=== PATIENT | female | born 1945 | race Caucasian/White ===

== ENCOUNTER 2021-10-13 00:10 | Emergency (ER) | payer MEDICARE, OTHER ==
[~2021-10-13] VITALS: Ht 149.9 cm; Wt 50.0 kg
[2021-10-13 02:16] LABS: BASOPHILS % (AUTO) 0.2 % (0.0-2.0); EOSINOPHILS % (AUTO) 0 % (1.0-6.0); HEMATOCRIT 39.1 % (36-46); HEMOGLOBIN 13.3 g/dL (12.0-16.0); LYMPHOCYTES # (AUTO) 0.6 K/uL (1.0-4.8); LYMPHOCYTES % (AUTO) 9.6 % (22.0-44.0); MEAN CORPUSCULAR HEMOGLOBIN 29.6 pg (26.0-34.0); MEAN CORPUSCULAR VOLUME 87 fL (80-100); MONOCYTES # (AUTO) 0.5 K/uL (0.1-1.0); MONOCYTES % (AUTO) 8.5 % (2.0-9.0); NEUTROPHILS % (AUTO) 81.7 % (40.0-70.0); PLATELET COUNT (AUTO) 180 K/uL (150-450); RED BLOOD CELL COUNT(AUTO) 4.49 MIL/uL (4.00-5.20); RED CELL DISTRIBUTION WIDTH 14.9 % (11.5-14.5)
[2021-10-13 02:25] LABS: ANION GAP 7 mmol/L (8-16); CALCIUM, TOTAL 9.4 mg/dL (8.8-10.5); CARBON DIOXIDE 32 mmol/L (22-29); CHLORIDE 104 mmol/L (98-107); CREATININE 0.77 mg/dL (0.60-1.30); GLUCOSE,RANDOM 131 mg/dL (70-110); POTASSIUM 3.4 mmol/L (3.5-5.1); SODIUM SERUM 143 mmol/L (136-145); UREA NITROGEN, BLOOD 26 mg/dL (7-18)
[2021-10-13 02:30] LABS: ALANINE AMINOTRANSFERASE 30 U/L (12-78); ALBUMIN 3.8 g/dL (3.4-5.0); ALKALINE PHOSPHATASE 73 U/L (46-116); ASPARTATE AMINOTRANSFERASE 36 U/L (15-37); BILIRUBIN,TOTAL 0.6 mg/dL (0.1-1.0)
[2021-10-13 02:35] LABS: GLOMERULAR FILTR. RATE CALC > 60 mL/min (>60)
[2021-10-13 04:08] LABS: COVID AG,FIA SOURCE NASAL SWAB
[2021-10-13 05:24] LABS: APPEARANCE,URINE CLEAR (CLEAR); BILIRUBIN,URINE NEGATIVE (NEGATIVE); GLUCOSE, URINE (UA) TRACE mg/dL (NEGATIVE); KETONES,URINE 40-60 mg/dL (NEGATIVE); LEUKOCYTE ESTERASE ,URINE NEGATIVE (NEGATIVE); NITRATE,URINE NEGATIVE (NEGATIVE); OCCULT BLOOD,URINE NEGATIVE (NEGATIVE); PROTEIN,URINE TRACE mg/dL (NEGATIVE); SPECIFIC GRAVITIY, URINE 1.024 (1.003-1.030); UROBILINOGEN,URINE <=1.0 mg/dL (<=1.0)
[2021-10-13 05:30] LABS: AMPHET/METH SCREEN,URINE NEGATIVE (NEGATIVE); BARBITURATE SCREEN, URINE NEGATIVE (NEGATIVE); BENZODIAZEPINES SCREEN,URINE NEGATIVE (NEGATIVE); CANNABINOID SCREEN,URINE NEGATIVE (NEGATIVE); COCAINE SCREEN,URINE NEGATIVE (NEGATIVE); METHADONE SCREEN, URINE NEGATIVE (NEGATIVE); OPIATE SCREEN,URINE NEGATIVE (NEGATIVE)
[2021-10-13 05:32] LABS: PHENCYCLIDINE SCREEN,URINE NEGATIVE (NEGATIVE)
[2021-10-13] MEDS: POTASSIUM CHLORIDE 20 MEQ ER TABLET PO ONE ×2 (06:15→06:19)
[2021-10-13 06:33] VITALS: BP 139/72
== END 2021-10-13 07:16 | disposition short-term general hospital (02) ==
LOC: EMS 00:11
DX: R45.1 Restlessness and agitation (principal); F29 Unspecified psychosis not due to a substance or known physiological condition; Z20.822 Contact with and (suspected) exposure to COVID-19; Z79.899 Other long term (current) drug therapy
CPT/HCPCS: 36415; 70450; 80053; 80307; 81003; 85025; 87426; 99285; G0480

== ENCOUNTER 2021-10-18 10:35 | Inpatient (IN) | payer MEDICARE, OTHER ==
[~2021-10-18] VITALS: Ht 152.4 cm; Wt 39.5 kg
[2021-10-18] MEDS ORDERED: IOHEXOL 350 MG/ML 100 ML VIAL ONE (11:33)
[2021-10-18] MEDS ORDERED: SODIUM CHLORIDE 0.9% 100 ML ONE (11:34)
[2021-10-18 11:35] LABS: BILIRUBIN,URINE NEGATIVE (NEGATIVE); GLUCOSE, URINE (UA) NEGATIVE (NEGATIVE); KETONES,URINE 40-60 mg/dL (NEGATIVE); LEUKOCYTE ESTERASE ,URINE SMALL (NEGATIVE); NITRATE,URINE NEGATIVE (NEGATIVE); OCCULT BLOOD,URINE NEGATIVE (NEGATIVE); PROTEIN,URINE 30-70 mg/dL (NEGATIVE); SPECIFIC GRAVITIY, URINE 1.028 (1.003-1.030); UROBILINOGEN,URINE <=1.0 mg/dL (<=1.0)
[2021-10-18 11:41] LABS: APPEARANCE,URINE HAZY (CLEAR)
[2021-10-18 11:42] LABS: BACTERIA,URINE Few /HPF (None Seen); RBC,URINE None Seen /HPF (0-2)
[2021-10-18 11:51] LABS: COVID AG,FIA SOURCE NASOPHARYNGEAL
[2021-10-18 12:08] LABS: BASOPHILS % (AUTO) 0.1 % (0.0-2.0); EOSINOPHILS % (AUTO) 0 % (1.0-6.0); HEMATOCRIT 48.5 % (36-46); LYMPHOCYTES # (AUTO) 0.3 K/uL (1.0-4.8); LYMPHOCYTES % (AUTO) 4.9 % (22.0-44.0); MEAN CORPUSCULAR HEMOGLOBIN 29.2 pg (26.0-34.0); MEAN CORPUSCULAR VOLUME 89 fL (80-100); MONOCYTES # (AUTO) 0.4 K/uL (0.1-1.0); MONOCYTES % (AUTO) 5.4 % (2.0-9.0); NEUTROPHILS # (AUTO) 6.4 K/uL (1.8-7.7); PLATELET COUNT (AUTO) 214 K/uL (150-450); RED BLOOD CELL COUNT(AUTO) 5.48 MIL/uL (4.00-5.20); RED CELL DISTRIBUTION WIDTH 15.2 % (11.5-14.5)
[2021-10-18 12:11] LABS: NEUTROPHILS % (AUTO) 89.6 % (40.0-70.0)
[2021-10-18] MEDS ORDERED: CefTRIAXone 1 GM/DEXTROSE 50 ML IV ONE (12:45)
[2021-10-18 12:54] LABS: ALANINE AMINOTRANSFERASE 37 U/L (12-78); ALBUMIN 3.8 g/dL (3.4-5.0); ALKALINE PHOSPHATASE 74 U/L (46-116); ANION GAP 17 mmol/L (8-16); ASPARTATE AMINOTRANSFERASE 27 U/L (15-37); BILIRUBIN,TOTAL 0.6 mg/dL (0.1-1.0); CALCIUM, TOTAL 10.5 mg/dL (8.8-10.5); CARBON DIOXIDE 31 mmol/L (22-29); CHLORIDE 110 mmol/L (98-107); CREATININE 0.89 mg/dL (0.60-1.30); GLUCOSE,RANDOM 122 mg/dL (70-110); PHOSPHORUS 4.7 mg/dL (2.5-4.9); SODIUM SERUM 158 mmol/L (136-145); TOTAL PROTEIN, SERUM 7.5 g/dL (6.4-8.2); UREA NITROGEN, BLOOD 47 mg/dL (7-18)
[2021-10-18 12:59] LABS: GLOMERULAR FILTR. RATE CALC > 60 mL/min (>60)
[2021-10-18 13:02] LABS: LACTIC ACID 1.5 mmol/L (0.4-2.0)
[2021-10-18] MEDS ORDERED: NYSTATIN 500,000 UNITS/5 ML SUSPENSION UDCUP PO ONE (13:15)
[2021-10-18] MEDS ORDERED: POTASSIUM CHLORIDE 20 MEQ ER TABLET PO ONE (13:15)
[2021-10-18 13:51] LABS: CREATININE,URINE RANDOM 181.8 mg/dL (30.0-125.0)
[2021-10-18] MEDS: POTASSIUM CHL 10 MEQ/WATER 50 ML IV SCH ×2 (14:03→15:12)
[2021-10-18] MEDS ORDERED: DEXTROSE IV ONE (14:15)
[2021-10-18] MEDS ORDERED: SODIUM CHL IV ONE (14:15)
[2021-10-18] MEDS ORDERED: POTASSIUM CHLORIDE IV ONE (14:15)
[2021-10-18] MEDS ORDERED: ALBUTEROL SULFATE 2.5 MG/0.5 ML NEB SOLUTION NEB PRN (14:45)
[2021-10-18] MEDS ORDERED: 0.9% SODIUM CHLORIDE 10 ML SYRINGE IVP PRN (14:45)
[2021-10-18] MEDS ORDERED: ACETAMINOPHEN 325 MG TABLET PO PRN (14:45)
[2021-10-18] MEDS ORDERED: IPRATROPIUM BROMIDE 0.5 MG/2.5 ML NEB SOLUTION NEB PRN (14:45)
[2021-10-18] MEDS ORDERED: ONDANSETRON HCL 4 MG/2 ML VIAL IVP PRN ×2 (14:45)
[2021-10-18] MEDS: PANTOPRAZOLE SODIUM 40 MG/VIAL IVP SCH (15:11)
[2021-10-18] MEDS: NYSTATIN 500,000 UNITS/5 ML SUSPENSION UDCUP PO SCH ×2 (16:20→20:22)
[2021-10-18 20:51] LABS: CALCIUM, TOTAL 9.8 mg/dL (8.8-10.5); CREATININE 1.04 mg/dL (0.60-1.30); POTASSIUM 3.7 mmol/L (3.5-5.1)
[2021-10-18 22:17] VITALS: BP 147/93
[2021-10-19 04:35] VITALS: BP 136/76
[2021-10-19 07:59] VITALS: BP 128/82
[2021-10-19 08:16] LABS: ALANINE AMINOTRANSFERASE 42 U/L (12-78); ALBUMIN 3.4 g/dL (3.4-5.0); ALKALINE PHOSPHATASE 64 U/L (46-116); ANION GAP 8 mmol/L (8-16); ASPARTATE AMINOTRANSFERASE 26 U/L (15-37); BILIRUBIN,TOTAL 0.7 mg/dL (0.1-1.0); CALCIUM, TOTAL 9.8 mg/dL (8.8-10.5); CARBON DIOXIDE 35 mmol/L (22-29); CHLORIDE 116 mmol/L (98-107); CHOL/HDL RATIO 2.9 (3.9-5.7); CHOLESTEROL 201 mg/dL (131-200); CREATININE 0.83 mg/dL (0.60-1.30); FREE T4 (FREE THYROXINE) 1.27 ng/dL (0.76-1.46); GLUCOSE,RANDOM 118 mg/dL (70-110); HDL CHOLESTEROL 70 mg/dL (40-60); LDL CHOL (CALC.) 113 mg/dL (0-130); POTASSIUM 3.5 mmol/L (3.5-5.1); SODIUM SERUM 159 mmol/L (136-145); THYROID STIMULATING HORMONE 1.14 uIU/mL (0.36-3.74); TOTAL PROTEIN, SERUM 6.7 g/dL (6.4-8.2); TRIGLYCERIDES 92 mg/dL (15-150); UREA NITROGEN, BLOOD 40 mg/dL (7-18)
[2021-10-19 08:17] LABS: GLOMERULAR FILTR. RATE CALC > 60 mL/min (>60)
[2021-10-19 08:23] LABS: BASOPHILS % (AUTO) 0.1 % (0.0-2.0); EOSINOPHILS % (AUTO) 0 % (1.0-6.0); HEMATOCRIT 46.5 % (36-46); HEMOGLOBIN 15.4 g/dL (12.0-16.0); LYMPHOCYTES # (AUTO) 0.4 K/uL (1.0-4.8); LYMPHOCYTES % (AUTO) 6.3 % (22.0-44.0); MEAN CORPUSCULAR HEMOGLOBIN 29.5 pg (26.0-34.0); MEAN CORPUSCULAR VOLUME 89 fL (80-100); MONOCYTES # (AUTO) 0.4 K/uL (0.1-1.0); MONOCYTES % (AUTO) 6.5 % (2.0-9.0); NEUTROPHILS # (AUTO) 5.5 K/uL (1.8-7.7); PLATELET COUNT (AUTO) 160 K/uL (150-450); RED BLOOD CELL COUNT(AUTO) 5.21 MIL/uL (4.00-5.20); RED CELL DISTRIBUTION WIDTH 15.1 % (11.5-14.5)
[2021-10-19 08:25] LABS: NEUTROPHILS % (AUTO) 87.1 % (40.0-70.0)
[2021-10-19] MEDS: PANTOPRAZOLE SODIUM 40 MG/VIAL IVP SCH (09:55)
[2021-10-19] MEDS: ASPIRIN 81 MG CHEWABLE TABLET PO SCH (09:56)
[2021-10-19] MEDS: DEXTROSE IV SCH ×2 (10:02→21:34)
[2021-10-19] MEDS: POTASSIUM CHLORIDE IV SCH ×2 (10:02→21:34)
[2021-10-19] MEDS: SODIUM CHL IV SCH ×2 (10:02→21:34)
[2021-10-19] MEDS: NYSTATIN 500,000 UNITS/5 ML SUSPENSION UDCUP PO SCH ×5 (10:20→21:34)
[2021-10-19 11:54] VITALS: BP 134/79
[2021-10-19] MEDS ORDERED: SODIUM CHLORIDE 0.9% 250 ML IV ONE (13:03)
[2021-10-19] MEDS: CefTRIAXone 1 GM/DEXTROSE 50 ML IV SCH (13:14)
[2021-10-19 13:47] LABS: CALCIUM, TOTAL 9.5 mg/dL (8.8-10.5); CREATININE 1.15 mg/dL (0.60-1.30); POTASSIUM 3.7 mmol/L (3.5-5.1)
[2021-10-19] MEDS ORDERED: SENNA/DOCUSATE SODIUM 8.6-50 MG TABLET PO PRN (15:00)
[2021-10-19] MEDS ORDERED: DOCUSATE SODIUM 100 MG CAPSULE PO PRN (15:00)
[2021-10-19] MEDS ORDERED: BISACODYL 10 MG RECTAL RECTAL SUPPOSITORY PR PRN (15:00)
[2021-10-19 16:09] VITALS: BP 127/68
[2021-10-19 18:50] LABS: CALCIUM, TOTAL 9.5 mg/dL (8.8-10.5); CREATININE 0.96 mg/dL (0.60-1.30); POTASSIUM 3.8 mmol/L (3.5-5.1)
[2021-10-19 20:15] VITALS: BP 140/76
[2021-10-20 00:55] VITALS: BP 127/73
[2021-10-20 05:13] VITALS: BP 128/72
[2021-10-20] MEDS: DEXTROSE IV SCH ×2 (06:12→15:36)
[2021-10-20] MEDS: POTASSIUM CHLORIDE IV SCH ×2 (06:12→15:36)
[2021-10-20] MEDS: SODIUM CHL IV SCH ×2 (06:12→15:36)
[2021-10-20 06:29] LABS: BASOPHILS % (AUTO) 0.3 % (0.0-2.0); EOSINOPHILS % (AUTO) 0 % (1.0-6.0); HEMATOCRIT 41.8 % (36-46); HEMOGLOBIN 13.6 g/dL (12.0-16.0); LYMPHOCYTES # (AUTO) 0.6 K/uL (1.0-4.8); LYMPHOCYTES % (AUTO) 10.2 % (22.0-44.0); MEAN CORPUSCULAR HGB CONC 32.6 G/dL (31.0-37.0); MEAN CORPUSCULAR VOLUME 89 fL (80-100); MONOCYTES # (AUTO) 0.4 K/uL (0.1-1.0); MONOCYTES % (AUTO) 6.6 % (2.0-9.0); NEUTROPHILS # (AUTO) 4.9 K/uL (1.8-7.7); NEUTROPHILS % (AUTO) 82.9 % (40.0-70.0); PLATELET COUNT (AUTO) 127 K/uL (150-450); RED BLOOD CELL COUNT(AUTO) 4.69 MIL/uL (4.00-5.20); RED CELL DISTRIBUTION WIDTH 14.7 % (11.5-14.5)
[2021-10-20 06:41] LABS: ALANINE AMINOTRANSFERASE 33 U/L (12-78); ALBUMIN 2.7 g/dL (3.4-5.0); ALKALINE PHOSPHATASE 53 U/L (46-116); ANION GAP 2 mmol/L (8-16); ASPARTATE AMINOTRANSFERASE 26 U/L (15-37); BILIRUBIN,TOTAL 0.6 mg/dL (0.1-1.0); CALCIUM, TOTAL 8.8 mg/dL (8.8-10.5); CARBON DIOXIDE 33 mmol/L (22-29); CHLORIDE 111 mmol/L (98-107); CREATININE 0.74 mg/dL (0.60-1.30); GLUCOSE,RANDOM 180 mg/dL (70-110); POTASSIUM 4.1 mmol/L (3.5-5.1); SODIUM SERUM 146 mmol/L (136-145); TOTAL PROTEIN, SERUM 5.5 g/dL (6.4-8.2); UREA NITROGEN, BLOOD 31 mg/dL (7-18)
[2021-10-20 07:09] LABS: GLOMERULAR FILTR. RATE CALC > 60 mL/min (>60)
[2021-10-20 07:14] VITALS: BP 119/83
[2021-10-20] MEDS: NYSTATIN 500,000 UNITS/5 ML SUSPENSION UDCUP PO SCH ×4 (08:43→21:26)
[2021-10-20] MEDS: PANTOPRAZOLE SODIUM 40 MG/VIAL IVP SCH (08:43)
[2021-10-20] MEDS: MULTIVITAMINS WITH MINERALS, THERAPEUTIC TABLET PO SCH (08:43)
[2021-10-20] MEDS: ASPIRIN 81 MG CHEWABLE TABLET PO SCH (08:44)
[2021-10-20] MEDS: FOLIC ACID 1 MG TABLET PO SCH (08:44)
[2021-10-20] MEDS: THIAMINE 100 MG TABLET PO SCH (08:44)
[2021-10-20 10:51] VITALS: BP 144/78
[2021-10-20] MEDS: CefTRIAXone 1 GM/DEXTROSE 50 ML IV SCH (13:26)
[2021-10-20 16:47] VITALS: BP 127/73
[2021-10-21 07:07] LABS: ANION GAP 5 mmol/L (8-16); CALCIUM, TOTAL 8.5 mg/dL (8.8-10.5); CARBON DIOXIDE 33 mmol/L (22-29); CHLORIDE 108 mmol/L (98-107); CREATININE 0.62 mg/dL (0.60-1.30); GLUCOSE,RANDOM 89 mg/dL (70-110); PHOSPHORUS 2.2 mg/dL (2.5-4.9); SODIUM SERUM 146 mmol/L (136-145); UREA NITROGEN, BLOOD 12 mg/dL (7-18)
[2021-10-21 07:08] LABS: BASOPHILS % (AUTO) 0.3 % (0.0-2.0); EOSINOPHILS % (AUTO) 0 % (1.0-6.0); HEMATOCRIT 41.9 % (36-46); HEMOGLOBIN 13.7 g/dL (12.0-16.0); LYMPHOCYTES # (AUTO) 0.8 K/uL (1.0-4.8); LYMPHOCYTES % (AUTO) 15.4 % (22.0-44.0); MEAN CORPUSCULAR HEMOGLOBIN 28.9 pg (26.0-34.0); MEAN CORPUSCULAR HGB CONC 32.7 G/dL (31.0-37.0); MEAN CORPUSCULAR VOLUME 88 fL (80-100); MONOCYTES # (AUTO) 0.4 K/uL (0.1-1.0); MONOCYTES % (AUTO) 7.2 % (2.0-9.0); NEUTROPHILS % (AUTO) 77.1 % (40.0-70.0); PLATELET COUNT (AUTO) 110 K/uL (150-450); RED BLOOD CELL COUNT(AUTO) 4.74 MIL/uL (4.00-5.20)
[2021-10-21 07:15] LABS: GLOMERULAR FILTR. RATE CALC > 60 mL/min (>60)
[2021-10-21 07:18] LABS: ALANINE AMINOTRANSFERASE 36 U/L (12-78); ALBUMIN 2.5 g/dL (3.4-5.0); ALKALINE PHOSPHATASE 57 U/L (46-116); ANION GAP 5 mmol/L (8-16); ASPARTATE AMINOTRANSFERASE 26 U/L (15-37); BILIRUBIN,TOTAL 0.4 mg/dL (0.1-1.0); CALCIUM, TOTAL 8.8 mg/dL (8.8-10.5); CARBON DIOXIDE 33 mmol/L (22-29); CHLORIDE 108 mmol/L (98-107); CREATININE 0.61 mg/dL (0.60-1.30); GLUCOSE,RANDOM 91 mg/dL (70-110); SODIUM SERUM 146 mmol/L (136-145); TOTAL PROTEIN, SERUM 5.3 g/dL (6.4-8.2); UREA NITROGEN, BLOOD 12 mg/dL (7-18)
[2021-10-21 07:19] LABS: GLOMERULAR FILTR. RATE CALC > 60 mL/min (>60)
[2021-10-21 08:05] VITALS: BP 128/74
[2021-10-21] MEDS: MULTIVITAMINS WITH MINERALS, THERAPEUTIC TABLET PO SCH (10:16)
[2021-10-21] MEDS: ASPIRIN 81 MG CHEWABLE TABLET PO SCH (10:16)
[2021-10-21] MEDS: FOLIC ACID 1 MG TABLET PO SCH (10:16)
[2021-10-21] MEDS: PANTOPRAZOLE SODIUM 40 MG/VIAL IVP SCH (10:16)
[2021-10-21] MEDS: SODIUM,POTASSIUM PHOSPHATES POWDER PACKET PO SCH ×2 (10:17→21:04)
[2021-10-21] MEDS: NYSTATIN 500,000 UNITS/5 ML SUSPENSION UDCUP PO SCH ×4 (10:17→21:04)
[2021-10-21] MEDS: THIAMINE 100 MG TABLET PO SCH (10:17)
[2021-10-21] MEDS: DEXTROSE 5%-WATER 1,000 ML IV SCH (10:18)
[2021-10-21 11:05] VITALS: BP 136/68
[2021-10-21] MEDS: CefTRIAXone 1 GM/DEXTROSE 50 ML IV SCH (13:34)
[2021-10-21 16:15] VITALS: BP 135/74
[2021-10-21] MEDS ORDERED: OLANZapine 5 MG RAPDIS TABLET PO PRN (18:00)
[2021-10-21 19:40] VITALS: BP 139/72
[2021-10-21] MEDS ORDERED: OLANZapine 5 MG RAPDIS TABLET PO SCH (21:00)
[2021-10-21 23:19] VITALS: BP 119/71
[2021-10-22] MEDS: DEXTROSE 5%-WATER 1,000 ML IV SCH (04:07)
[2021-10-22 04:21] VITALS: BP 103/61
[2021-10-22 07:24] VITALS: BP 116/68
[2021-10-22 07:50] LABS: BASOPHILS % (AUTO) 0.4 % (0.0-2.0); EOSINOPHILS % (AUTO) 0 % (1.0-6.0); HEMOGLOBIN 13.4 g/dL (12.0-16.0); LYMPHOCYTES # (AUTO) 0.9 K/uL (1.0-4.8); LYMPHOCYTES % (AUTO) 19.9 % (22.0-44.0); MEAN CORPUSCULAR HEMOGLOBIN 29.4 pg (26.0-34.0); MEAN CORPUSCULAR HGB CONC 33.6 G/dL (31.0-37.0); MEAN CORPUSCULAR VOLUME 88 fL (80-100); MONOCYTES # (AUTO) 0.3 K/uL (0.1-1.0); MONOCYTES % (AUTO) 7.6 % (2.0-9.0); NEUTROPHILS # (AUTO) 3.2 K/uL (1.8-7.7); NEUTROPHILS % (AUTO) 72.1 % (40.0-70.0); RED BLOOD CELL COUNT(AUTO) 4.57 MIL/uL (4.00-5.20); RED CELL DISTRIBUTION WIDTH 14.1 % (11.5-14.5)
[2021-10-22 08:01] LABS: PLATELET COUNT (AUTO) 97 K/uL (150-450)
[2021-10-22 08:08] LABS: ALANINE AMINOTRANSFERASE 38 U/L (12-78); ALBUMIN 2.5 g/dL (3.4-5.0); ALKALINE PHOSPHATASE 66 U/L (46-116); ANION GAP 4 mmol/L (8-16); ASPARTATE AMINOTRANSFERASE 25 U/L (15-37); BILIRUBIN,TOTAL 0.4 mg/dL (0.1-1.0); CARBON DIOXIDE 33 mmol/L (22-29); CHLORIDE 107 mmol/L (98-107); CREATININE 0.65 mg/dL (0.60-1.30); GLUCOSE,RANDOM 93 mg/dL (70-110); PHOSPHORUS 3.6 mg/dL (2.5-4.9); POTASSIUM 3.5 mmol/L (3.5-5.1); SODIUM SERUM 144 mmol/L (136-145); TOTAL PROTEIN, SERUM 5.3 g/dL (6.4-8.2); UREA NITROGEN, BLOOD 12 mg/dL (7-18)
[2021-10-22 08:16] LABS: GLOMERULAR FILTR. RATE CALC > 60 mL/min (>60)
[2021-10-22] MEDS: NYSTATIN 500,000 UNITS/5 ML SUSPENSION UDCUP PO SCH ×3 (08:46→17:33)
[2021-10-22] MEDS: MULTIVITAMINS WITH MINERALS, THERAPEUTIC TABLET PO SCH (08:47)
[2021-10-22] MEDS: FOLIC ACID 1 MG TABLET PO SCH (08:47)
[2021-10-22] MEDS: ASPIRIN 81 MG CHEWABLE TABLET PO SCH (08:47)
[2021-10-22] MEDS: PANTOPRAZOLE SODIUM 40 MG/VIAL IVP SCH (08:47)
[2021-10-22] MEDS: THIAMINE 100 MG TABLET PO SCH (08:47)
[2021-10-22 10:52] VITALS: BP 122/72
[2021-10-22 15:02] VITALS: BP 116/74
[2021-10-22] MEDS: CefTRIAXone 1 GM/DEXTROSE 50 ML IV SCH (17:33)
== END 2021-10-22 19:00 | DRG 640 ==
LOC: EMS 10:35 → 5S 14:37
PROVIDERS: ADMIT Internal Medicine; ATTEND Internal Medicine
DX: E87.0 Hyperosmolality and hypernatremia (principal); E43 Unspecified severe protein-calorie malnutrition; N39.0 Urinary tract infection, site not specified; Z68.1 Body mass index [BMI] 19.9 or less, adult; B37.0 Candidal stomatitis; E87.6 Hypokalemia; E86.0 Dehydration; R62.7 Adult failure to thrive; D69.6 Thrombocytopenia, unspecified; R79.89 Other specified abnormal findings of blood chemistry; K59.00 Constipation, unspecified; Z79.899 Other long term (current) drug therapy; Z79.82 Long term (current) use of aspirin; Z20.822 Contact with and (suspected) exposure to COVID-19
CPT/HCPCS: 74177; 80048; 80053; 80061; 81001; 82570; 83605; 83735; 83930; 83935; 84100; 84133; 84145; 84300; 84439; 84443; 84484; 84540; 85025; 87040; 87086; 93005; 93306; 97116; 97162; 97530; 99285; C9113; J0696; J3480; J7050; J7060; Q9967